=== PATIENT | female | born 1995 | race African-American/Black ===

== ENCOUNTER 2016-04-24 21:30 | Emergency (ER) | payer OTHER, MEDICAID ==
[~2016-04-24] VITALS: Ht 154.9 cm; Wt 65.0 kg
[~2016-04-24 21:30] MED LIST: CLIN1CAP5 PO; METR500I3 PO
[2016-04-24 21:32] VITALS: BP 130/75; PULSE 85; RESP 16; TEMP 98.1; O2SAT 98
[2016-04-24 23:06] LABS: AUTOMATED NEUTROPHIL # 5.1 TH/MM3 (1.8-7.7); BASOPHIL # 0.1 TH/MM3 (0-0.2); BASOPHIL % 0.6 % (0.0-2.0); EOSINOPHIL # 0.1 TH/MM3 (0-0.4); EOSINOPHIL % 0.6 % (0.0-4.0); HEMATOCRIT 40.2 % (35.0-46.0); HEMO FLAGS DIFF FINAL; LYMPH % 31.9 % (9.0-44.0); LYMPHOCYTE # 2.7 TH/MM3 (1.0-4.8); MEAN CELL VOLUME 80.5 FL (80.0-100.0); MEAN CORPUSCULAR HEMOGLOBIN 27.3 PG (27.0-34.0); MEAN CORPUSCULAR HGB CONC 33.9 % (32.0-36.0); MONO % 6.1 % (0.0-8.0); NEUT % 60.8 % (16.0-70.0); PLATELET COUNT 209 TH/MM3 (150-450); RED BLOOD COUNT 4.99 MIL/MM3 (4.00-5.30); RED CELL DISTRIBUTION WIDTH 15.4 % (11.6-17.2); WHITE BLOOD COUNT 8.4 TH/MM3 (4.0-11.0)
[2016-04-24 23:12] LABS: BLOOD, URINE NEG (NEG); COMMENT (UR) CULT NOT INDICATED; CULTURE IF INDICATED CULT NOT INDICATED; GLUCOSE,URINE NEG (NEG); KETONE, URINE NEG (NEG); MUCUS URINE FEW /lpf (OCC); NITRITE,URINE NEG (NEG); PH, URINE 5.5 (5.0-8.5); SQUAMOUS EPITHELIAL CELL URINE 5 /hpf (0-5); TRANSITIONAL EPI CELLS, URINE <1 /hpf; URINE COLOR YELLOW (YELLW/STRAW)
[2016-04-24 23:29] LABS: ANION GAP 7 MEQ/L (5-15); BICARBONATE 24.2 MEQ/L (21.0-32.0); BLOOD UREA NITROGEN 5 MG/DL (7-18); CHLORIDE 106 MEQ/L (98-107); GLOMERULAR FILTRATION RATE 128 ML/MIN (>89); SODIUM (NA) 137 MEQ/L (136-145)
[2016-04-25 04:12] VITALS: BP 109/59; PULSE 85; RESP 18; TEMP 98.4; O2SAT 100
--- NOTE | 2016-04-25 04:27 | PD ---
HPI Chief Complaint: Abdominal Pain Time Seen by Provider: 04:18 Travel History International Travel<30 days: No Contact w/Intl Traveler<30days: No Traveled to known affect area: No History of Present Illness HPI 21-year-old female arrives to the ER complaining of lower abdominal pain for 2 days associated with vaginal discharge. The vaginal discharge is somewhat bloody. Last menstruation was about 4 weeks ago. She does not believe she could be . She's had one prior which ended in . No nausea vomiting or diarrhea. No diaphoresis. Appetite normal. Onset gradual. Severity moderate. PFSH Past Medical History Diminished Hearing: No Immunizations Current: Yes Tetanus Vaccination: > 5 Years Influenza Vaccination: No ?: Unknown LMP: 03/17/16 : 2 Para: 0 Miscarriage: 0 : 2 Past Surgical History Surgical History: No Previous Surgery Social History Alcohol Use: No Tobacco Use: No Substance Use: Yes (RARE MARIJUANA) Allergies-Medications (Allergen,Severity, Reaction): Coded Allergies: No Known Allergies (Verified , 04/24/16) Reported Meds & Prescriptions Reported Meds & Active Scripts Active Obstetrix One ( W/O Vit A W/Fe Carbonyl-Fe Fumar) 38-1-225 Mg Cap 1 Cap PO DAILY Flagyl (Metronidazole) 500 Mg Tab 500 Mg PO BID 7 Days Review of Systems Except as stated in HPI: all other systems reviewed are Neg Physical Exam Narrative GENERAL: 21-year-old female pleasant no acute distress SKIN: Warm and dry. HEAD: Atraumatic. Normocephalic. EYES: Pupils equal and round. No scleral icterus. No injection or drainage. ENT: No nasal bleeding or discharge. Mucous membranes pink and moist. NECK: Trachea midline. No JVD. CARDIOVASCULAR: Regular rate and rhythm. No murmur appreciated. RESPIRATORY: No accessory muscle use. Clear to auscultation. Breath sounds equal bilaterally. GASTROINTESTINAL: Soft. Minimal tenderness about the suprapubic abdomen. MUSCULOSKELETAL: No obvious deformities. No clubbing. No cyanosis. No edema. NEUROLOGICAL: Awake and alert. No obvious cranial nerve deficits. Motor grossly within normal limits. Normal speech. PSYCHIATRIC: Appropriate mood and affect; insight and judgment normal. Data Data Last Documented VS Vital Signs Date Time Temp Pulse Resp B/P Pulse Ox O2 Delivery O2 Flow Rate FiO2 04/25/16 04:12 98.4 85 18 109/59 100 Room Air Orders Complete Blood Count With Diff (04/24/16 22:32) Basic Metabolic Panel (Bmp) (04/24/16 22:32) Urinalysis - C+S If Indicated (04/24/16 22:32) Ed Urine Pregnancytest Poc (04/24/16 22:32) Gc And Chlamydia Pcr (04/25/16 04:23) Complete Rh (04/25/16 04:23) Wet Prep Profile (04/25/16 04:23) Beta Hcg (Quant/Titer) (04/24/16 22:39) Hepatic Functional Panel (04/24/16 22:39) Lipase (04/24/16 22:39) Ed Poc Ultrasound (04/25/16 05:35) Labs Laboratory Tests Test 04/24/16 04/25/16 04/25/16 22:39 05:10 05:20 White Blood Count 8.4 TH/MM3 Red Blood Count 4.99 MIL/MM3 Hemoglobin 13.6 GM/DL Hematocrit 40.2 % Mean Corpuscular Volume 80.5 FL Mean Corpuscular Hemoglobin 27.3 PG Mean Corpuscular Hemoglobin 33.9 % Concent Red Cell Distribution Width 15.4 % Platelet Count 209 TH/MM3 Mean Platelet Volume 8.9 FL Neutrophils (%) (Auto) 60.8 % Lymphocytes (%) (Auto) 31.9 % Monocytes (%) (Auto) 6.1 % Eosinophils (%) (Auto) 0.6 % Basophils (%) (Auto) 0.6 % Neutrophils # (Auto) 5.1 TH/MM3 Lymphocytes # (Auto) 2.7 TH/MM3 Monocytes # (Auto) 0.5 TH/MM3 Eosinophils # (Auto) 0.1 TH/MM3 Basophils # (Auto) 0.1 TH/MM3 CBC Comment DIFF FINAL Differential Comment Urine Color YELLOW Urine Turbidity CLEAR Urine pH 5.5 Urine Specific [place] 1.015 Urine Protein NEG mg/dL Urine Glucose (UA) NEG mg/dL Urine Ketones NEG mg/dL Urine Occult Blood NEG Urine Nitrite NEG Urine Bilirubin NEG Urine Urobilinogen LESS THAN 2.0 MG/DL Urine Leukocyte Esterase NEG Urine RBC 1 /hpf Urine WBC 1 /hpf Urine Squamous Epithelial 5 /hpf Cells Urine Transitional Epithelial <1 /hpf Cells Urine Mucus FEW /lpf Microscopic Urinalysis Comment CULT NOT INDICATED Sodium Level 137 MEQ/L Potassium Level 4.0 MEQ/L Chloride Level 106 MEQ/L Carbon Dioxide Level 24.2 MEQ/L Anion Gap 7 MEQ/L Blood Urea Nitrogen 5 MG/DL Creatinine 0.70 MG/DL Estimat Glomerular Filtration 128 ML/MIN Rate Random Glucose 85 MG/DL Calcium Level 9.0 MG/DL Total Bilirubin 0.2 MG/DL Direct Bilirubin LESS THAN 0.1 MG/DL Indirect Bilirubin 0.1 MG/DL Aspartate Amino Transf 12 U/L (AST/SGOT) Alanine Aminotransferase 24 U/L (ALT/SGPT) Alkaline Phosphatase 70 U/L Total Protein 7.7 GM/DL Albumin 3.9 GM/DL Lipase 190 U/L Human Chorionic Gonadotropin, [address]98 MIU/ML Quant Blood Type B POSITIVE Rho(D) Type POSITIVE Clue Cells (Wet Prep) PRESENT Vaginal Trichomonas (Wet Prep) NONE SEEN Vaginal Yeast (Wet Prep) NONE SEEN MDM Medical Decision Making Medical Screen Exam Complete: Yes Emergency Medical Condition: Yes Medical Record Reviewed: Yes Differential Diagnosis IUP, UTI, ectopic , ov torsion, appendicitis, TOA, cervicitis, BV, Trichomoniasis, ov cyst, hernia, mittelschmerz, pain from menstruation Narrative Course CBC & BMP Diagram 04/24/16 22:39 UA reveals no UTI Urine positive Beta hCG is 83,232 LFTs normal Lipase normal B+ blood type Bedside ultrasound reveals an IUP with a heart rate of approximately 150/m. Wet prep positive for bacterial vaginosis. Flagyl and vitamin scripts. Follow-up with email production specialist in 2 days. Diagnosis Primary Impression: IUP (intrauterine ), incidental Additional Impression: Bacterial vaginitis Referrals: Yoselyn Marsh MD 2 days Additional Instructions: You have a choice when it comes to health care, and we are glad that you chose [facility]. Hopefully, we have met your expectations on today's visit. You are welcome to return to [facility] at any time, as we are committed to meeting the health care needs of our community. Med/Other Pt SpecificInfo: Prescription(s) given Scripts W/O Vit A W/Fe Carbonyl-Fe Fumar (Obstetrix One)38-1-225 Mg Cap1 Cap PO DAILY #90 CAP Ref 2 Prov:Andrea Montiel MD 04/25/16 Metronidazole (Flagyl)500 Mg Zol010 Mg PO BID 7 Days Ref 0 Prov:Andrea Montiel MD 04/25/16 Andrea Montiel MD Apr 25, 2016 04:27
[2016-04-25 05:14] LABS: ALT (GPT) 24 U/L (10-53); AST (GOT) 12 U/L (15-37)
[2016-04-25 05:29] LABS: ALKALINE PHOSPHATASE 70 U/L (45-117); BETA HCG QUANT 83232 MIU/ML (0-5); INDIRECT BILIRUBIN 0.1 MG/DL (0.0-0.8); TOTAL BILIRUBIN ADULT 0.2 MG/DL (0.2-1.0)
[2016-04-25] MEDS ORDERED: PREN1CAP PO (06:30)
[2016-04-25] MEDS ORDERED: METR-1 PO (06:30)
[2016-04-25] MEDS ORDERED: metroNIDAZOLE 500 MG TAB PO ONE (06:45)
[2016-04-25] MEDS ORDERED: cefTRIAXone 250 MG VIAL IM ONE (06:45)
[2016-04-25] MEDS ORDERED: AZITHROMYCIN PWD FOR SUSP 1 GM PACKET PO ONE (06:45)
[2016-04-25] MEDS ORDERED: LIDOCAINE HCL 1% 50 ML VIAL IM ONE (06:45)
[2016-04-25 07:44] LABS: CHLAMYDIA PCR NOT DETECTED (NOT DETECT); NEISSERIA PCR NOT DETECTED (NOT DETECT)
== END 2016-04-25 08:31 | disposition home or self-care (01) ==
LOC: NEPC 21:30
DX: O23.591 Infection of other part of genital tract in pregnancy, first trimester (principal); N76.0 Acute vaginitis
CPT/HCPCS: 80048; 80076; 81001; 83690; 84702; 84703; 85025; 86901; 87210; 87491; 87591; 96372; 99284; J0696

== ENCOUNTER → 2016-08-22 | Outpatient (CLI) | payer OTHER ==
[~2016-08-22] MED LIST changes: -CLIN1CAP5 PO; +METR-1 PO; -METR500I3 PO; +PREN1CAP PO
== END ==
LOC: HPND 08:27
PROVIDERS: ATTEND Obstetrics & Gynecology
DX: O35.1XX0 Maternal care for (suspected) chromosomal abnormality in fetus, not applicable or unspecified (principal); Z3A.00 Weeks of gestation of pregnancy not specified
CPT/HCPCS: 76811

== ENCOUNTER → 2016-09-18 | Outpatient (CLI) | payer OTHER | LOC: HPND 07:56 | PROVIDERS: ATTEND Obstetrics & Gynecology | DX: O26.842 Uterine size-date discrepancy, second trimester (principal) | CPT/HCPCS: 76816 ==

== ENCOUNTER 2017-02-05 08:10 | Emergency (ER) | payer MEDICAID, OTHER ==
[~2017-02-05] VITALS: Ht 154.9 cm; Wt 66.0 kg
[2017-02-05 08:28] VITALS: BP 132/84; PULSE 84; RESP 16; TEMP 98.6; O2SAT 100
--- NOTE | 2017-02-05 09:09 | PD ---
HPI . Abdominal pain Chief Complaint: Abdominal Pain Time Seen by Provider: 08:57 Travel History International Travel<30 days: No Contact w/Intl Traveler<30days: No Traveled to known affect area: No History of Present Illness HPI This patient presents with the chief complaint of abdominal pain. Onset was 3 days ago. She describes right lower quadrant and right flank pain. It is sharp. No modifying factors. Her pain is associated with hematuria. She denies fever or vomiting. She denies dysuria but states that it feels funny after she urinates. PFSH Past Medical History Medical History: Denies Significant Hx Diminished Hearing: No Immunizations Current: Yes ?: Not LMP: 01/08/17 : 2 Para: 0 Miscarriage: 0 : 2 Past Surgical History Section: Yes Gynecologic Surgery: Yes (c section ) Social History Alcohol Use: No Tobacco Use: No Substance Use: Yes (RARE MARIJUANA) Allergies-Medications (Allergen,Severity, Reaction): Coded Allergies: No Known Allergies (Verified Adverse Reaction, Unknown, 02/05/17) Reported Meds & Prescriptions Reported Meds & Active Scripts Active Macrobid (Nitrofurantoin Monoh/Nitrofur Macro) 100 Mg Cap 100 Mg PO BID 5 Days Review of Systems Except as stated in HPI: all other systems reviewed are Neg General / Constitutional: No: Fever, Chills Gastrointestinal: Positive: Abdominal Pain, No: Nausea, Vomiting Genitourinary: Positive: Hematuria, Flank Pain, No: Urgency, Frequency, Dysuria , Pelvic Pain, Dyspareunia, Discharge, Vaginal Bleeding Physical Exam Narrative GENERAL: Awake and alert and in no acute distress. SKIN: warm/dry. HEAD: Normocephalic. Atraumatic. EYES: Pupils equal and round. No scleral icterus. No injection or drainage. ENT: No nasal bleeding or discharge. Mucous membranes pink and moist. NECK: Trachea midline. Full range of motion without pain.. CARDIOVASCULAR: Regular rate and rhythm. RESPIRATORY: No accessory muscle use. Clear to auscultation. Breath sounds equal bilaterally. GASTROINTESTINAL: Abdomen soft. Nontender. Bowel sounds present. Nondistended. No CVA tenderness. MUSCULOSKELETAL: No obvious deformities. NEUROLOGICAL: Awake and alert. No obvious cranial nerve deficits. Motor grossly within normal limits. Normal speech. PSYCHIATRIC: Appropriate mood and affect; insight and judgment normal. Data Data Last Documented VS Vital Signs Date Time Temp Pulse Resp B/P (MAP) Pulse Ox O2 Delivery O2 Flow Rate FiO2 02/05/17 08:28 98.6 84 16 132/84 (100) 100 Orders Orders Ed Urine Pregnancytest Poc (02/05/17 08:57) Urinalysis - C+S If Indicated (02/05/17 08:57) Ct Abd/Pel W/O Iv Contrast (02/05/17 08:57) Urine Culture (02/05/17 09:00) Labs Laboratory Tests Test 02/05/17 09:00 Urine Color YELLOW Urine Turbidity CLOUDY Urine pH 6.0 Urine Specific [place] 1.016 Urine Protein 30 mg/dL Urine Glucose (UA) NEG mg/dL Urine Ketones NEG mg/dL Urine Occult Blood MOD Urine Nitrite NEG Urine Bilirubin NEG Urine Urobilinogen LESS THAN 2.0 MG/DL Urine Leukocyte Esterase LARGE Urine RBC 40 /hpf Urine WBC /hpf Urine WBC Clumps RARE Urine Squamous Epithelial Cells 5 /hpf Urine Bacteria FEW /hpf Microscopic Urinalysis Comment CULTURE INDICATED MDM Medical Decision Making Medical Screen Exam Complete: Yes Emergency Medical Condition: Yes Differential Diagnosis Differential diagnosis of flank pain includes but is not limited to kidney stone , pyelonephritis, musculoskeletal pain, PE Narrative Course This patient presents complaining with right flank pain associated with hematuria. She looks very comfortable. Her exam is benign. UA>>mod blood, large LE, 40 RBCs, innumerable WBCs, WBC clumps, few bact Last Impressions Abdomen/Pelvis CT 02/05/17 0857 Signed Impressions: Service Date/Time: Sunday, February 05, 2017 09:43 - CONCLUSION: Miniscule nonobstructing left renal calculus. No evidence of hydronephrosis. Sylvain Wyman MD Will treat for UTI. Diagnosis Primary Impression: Right flank pain Additional Impression: Urinary tract infection Qualified Codes: N30.01 - Acute cystitis with hematuria Patient Instructions: General Instructions, Urinary Tract Infection in Women ( [place]) Med/Other Pt SpecificInfo: Prescription(s) given Scripts Nitrofurantoin Monohydrate Macrocrystals (Macrobid) 100 Mg Cap 100 MG PO BID for Infection for 5 Days, #10 CAP 0 Refills Prov: Gloria Sandhu MD 02/05/17 Disposition: 01 DISCHARGE HOME Condition: Stable Gloria Sandhu MD Feb 05, 2017 09:09
[2017-02-05 09:20] LABS: BACTERIA, URINE FEW /hpf; BLOOD, URINE MOD (NEG); GLUCOSE,URINE NEG (NEG); KETONE, URINE NEG (NEG); NITRITE,URINE NEG (NEG); SQUAMOUS EPITHELIAL CELL URINE 5 /hpf (0-5); URINE COLOR YELLOW (YELLW/STRAW)
[2017-02-05 09:22] LABS: COMMENT (UR) CULTURE INDICATED; CULTURE IF INDICATED CULTURE INDICATED
[2017-02-05] MEDS ORDERED: MACR100C2 PO (09:52)
--- NOTE | 2017-02-05 10:11 | RADRPT ---
EXAM DATE/TIME: 02/05/2017 09:43 [facility] COMPARISON: No previous studies available for comparison. INDICATIONS : Hematuria and lower back pain since yesterday. ORAL CONTRAST: No oral contrast ingested. RADIATION DOSE: 8.90 CTDIvol (mGy) MEDICAL HISTORY : None SURGICAL HISTORY : None. ENCOUNTER: Initial ACUITY: 1 day PAIN SCALE: 7/10 LOCATION: lower back TECHNIQUE: Volumetric scanning of the abdomen and pelvis was performed. Using automated exposure control and ad justment of the mA and/or kV according to patient size, radiation dose was kept as low as reasonably achievable to obtain optimal diagnostic quality images. DICOM format image data is available electro nically for review and comparison. FINDINGS: LOWER LUNGS: Not visualized LIVER: Visualized portions are grossly unremarkable. SPLEEN: Visualized portions grossly unremarkable. PANCREAS: Within normal limits. KIDNEYS: Miniscule nonobstructing calculus in the posterior midpole collecting system of the left kidney. No e vidence of mass or hydronephrosis ADRENAL GLANDS: Within normal limits. VASCULAR: There is no aortic aneurysm. BOWEL/MESENTERY: The stomach, small bowel, and colon demonstrate no acute abnormality. There is no free intraperitone al air or fluid. ABDOMINAL WALL: Within normal limits. RETROPERITONEUM: There is no lymphadenopathy. BLADDER: No wall thickening or mass. REPRODUCTIVE: Within normal limits. INGUINAL: There is no lymphadenopathy or hernia. MUSCULOSKELETAL: Within normal limits for patient age. CONCLUSION: Miniscule nonobstructing left renal calculus. No evidence of hydronephrosis. Sylvain Wyman MD on February 05, 2017 at 10:03 Board Certified Radiologist. This report was verified electronically.
== END 2017-02-05 10:50 | disposition home or self-care (01) ==
LOC: NEPE 08:10
DX: N30.01 Acute cystitis with hematuria (principal); B96.20 Unspecified Escherichia coli [E. coli] as the cause of diseases classified elsewhere
CPT/HCPCS: 74176; 81001; 84703; 87077; 87086; 87186; 99284

== ENCOUNTER 2017-07-11 08:29 | Emergency (ER) | payer SELFPAY ==
[~2017-07-11] VITALS: Ht 154.9 cm; Wt 70.0 kg
[~2017-07-11 08:29] MED LIST changes: +MACR100C2 PO; -METR-1 PO; -PREN1CAP PO
[2017-07-11 08:39] VITALS: BP 131/61; PULSE 77; RESP 17; TEMP 97.9; O2SAT 99
[2017-07-11 11:00] LABS: AUTOMATED NEUTROPHIL # 4.3 TH/MM3 (1.8-7.7); BASOPHIL % 0.4 % (0.0-2.0); EOSINOPHIL # 0.1 TH/MM3 (0-0.4); EOSINOPHIL % 0.7 % (0.0-4.0); HEMATOCRIT 35.8 % (35.0-46.0); HEMOGLOBIN 11.9 GM/DL (11.6-15.3); LYMPH % 35.3 % (9.0-44.0); LYMPHOCYTE # 2.7 TH/MM3 (1.0-4.8); MEAN CORPUSCULAR HEMOGLOBIN 24.4 PG (27.0-34.0); MEAN CORPUSCULAR HGB CONC 33.3 % (32.0-36.0); MEAN PLATELET VOLUME 8.4 FL (7.0-11.0); MONO % 6.3 % (0.0-8.0); MONOCYTE # 0.5 TH/MM3 (0-0.9); NEUT % 57.3 % (16.0-70.0); PLATELET COUNT 270 TH/MM3 (150-450); RED CELL DISTRIBUTION WIDTH 17.8 % (11.6-17.2); WHITE BLOOD COUNT 7.6 TH/MM3 (4.0-11.0)
[2017-07-11 11:04] LABS: BACTERIA, URINE RARE /hpf; BILIRUBIN, URINE NEG (NEG); BLOOD, URINE NEG (NEG); GLUCOSE,URINE NEG (NEG); KETONE, URINE NEG (NEG); NITRITE,URINE NEG (NEG); PH, URINE 7.5 (5.0-8.5); SQUAMOUS EPITHELIAL CELL URINE 4 /hpf (0-5); URINE COLOR YELLOW (YELLW/STRAW); URINE LEUKOCYTE ESTERASE NEG (NEG)
--- NOTE | 2017-07-11 11:25 | PD ---
HPI Chief Complaint: Automation Lead Problem/Complaint Time Seen by Provider: 10:57 Travel History International Travel<30 days: No Contact w/Intl Traveler<30days: No Traveled to known affect area: No History of Present Illness HPI 22-year-old female presents to the emergency department for evaluation of vaginal bleeding for 3 weeks. Patient states that she is going through approximately 1-3 pads a day. She states the vaginal bleeding is not heavy, but she does not know why she is bleeding. Patient has a 7-month-old daughter. Patient's urine test is positive in triage. She is a G3, P1 with one previous . Patient denies any fevers or chills. No abdominal pain. She denies any abnormal vaginal discharge or risk of STDs. Patient denies any syncope, weakness. She denies any other symptoms or complaints at this time. Mild-moderate severity. PFSH Past Medical History Medical History: Denies Significant Hx Diminished Hearing: No Immunizations Current: Yes ?: LMP: 05/2017 : 2 Para: 0 Miscarriage: 0 : 2 Past Surgical History Section: Yes Gynecologic Surgery: Yes (c section ) Social History Alcohol Use: No Tobacco Use: No Substance Use: Yes (RARE MARIJUANA) Allergies-Medications (Allergen,Severity, Reaction): Coded Allergies: No Known Allergies (Verified Adverse Reaction, Unknown, 02/05/17) Reported Meds & Prescriptions Reported Meds & Active Scripts Active No Active Prescriptions or Reported Medications Review of Systems Except as stated in HPI: all other systems reviewed are Neg Physical Exam Narrative GENERAL: Well-nourished, well-developed female patient, afebrile. SKIN: Focused skin assessment warm/dry. HEAD: Normocephalic. Atraumatic. EYES: No scleral icterus. No injection or drainage. NECK: Supple, trachea midline. No JVD or lymphadenopathy. CARDIOVASCULAR: Regular rate and rhythm without murmurs, gallops, or rubs. RESPIRATORY: Breath sounds equal bilaterally. No accessory muscle use. Lungs sounds are clear to auscultation GASTROINTESTINAL: Abdomen soft, non-tender, nondistended. No tenderness to palpation MUSCULOSKELETAL: No cyanosis, or edema. BACK: Nontender without obvious deformity. No CVA tenderness. GENITOURINARY: Normal external genitalia without lesions or erythema. Vaginal vault without blood or drainage. Cervical os was closed without drainage. No cervical motion tenderness. Uterus nontender and nonenlarged. Bilateral adnexa nontender without masses. This exam was done with RN at bedside Data Data Last Documented VS Vital Signs Date Time Temp Pulse Resp B/P (MAP) Pulse Ox O2 Delivery O2 Flow Rate FiO2 07/11/17 08:39 97.9 77 17 131/61 (84) 99 Orders Orders Complete Blood Count With Diff (07/11/17 10:14) Iv Access Insert/Monitor (07/11/17 10:14) Oxygen Administration (07/11/17 10:14) Oximetry (07/11/17 10:14) Ed Urine Pregnancytest Poc (07/11/17 10:14) Basic Metabolic Panel (Bmp) (07/11/17 10:14) Urinalysis - C+S If Indicated (07/11/17 10:16) Beta Hcg (Quant/Titer) (07/11/17 11:13) Gc And Chlamydia Pcr (07/11/17 11:13) Wet Prep Profile (07/11/17 11:13) Us Pelvis (Ques Preg/Ectopic) (07/11/17 ) Labs Laboratory Tests Test 07/11/17 10:32 07/11/17 10:33 07/11/17 11:15 Urine Color YELLOW Urine Turbidity CLEAR Urine pH 7.5 Urine Specific [place] 1.012 Urine Protein NEG mg/dL Urine Glucose (UA) NEG mg/dL Urine Ketones NEG mg/dL Urine Occult Blood NEG Urine Nitrite NEG Urine Bilirubin NEG Urine Urobilinogen LESS THAN 2.0 MG/DL Urine Leukocyte Esterase NEG Urine RBC 1 /hpf Urine WBC 2 /hpf Urine Squamous Epithelial Cells 4 /hpf Urine Bacteria RARE /hpf Microscopic Urinalysis Comment CULT NOT INDICATED White Blood Count 7.6 TH/MM3 Red Blood Count 4.90 MIL/MM3 Hemoglobin 11.9 GM/DL Hematocrit 35.8 % Mean Corpuscular Volume 73.0 FL Mean Corpuscular Hemoglobin 24.4 PG Mean Corpuscular Hemoglobin Concent 33.3 % Red Cell Distribution Width 17.8 % Platelet Count 270 TH/MM3 Mean Platelet Volume 8.4 FL Neutrophils (%) (Auto) 57.3 % Lymphocytes (%) (Auto) 35.3 % Monocytes (%) (Auto) 6.3 % Eosinophils (%) (Auto) 0.7 % Basophils (%) (Auto) 0.4 % Neutrophils # (Auto) 4.3 TH/MM3 Lymphocytes # (Auto) 2.7 TH/MM3 Monocytes # (Auto) 0.5 TH/MM3 Eosinophils # (Auto) 0.1 TH/MM3 Basophils # (Auto) 0.0 TH/MM3 CBC Comment DIFF FINAL Differential Comment Blood Urea Nitrogen 6 MG/DL Creatinine 0.60 MG/DL Random Glucose 87 MG/DL Calcium Level 8.9 MG/DL Sodium Level 138 MEQ/L Potassium Level 3.6 MEQ/L Chloride Level 107 MEQ/L Carbon Dioxide Level 26.5 MEQ/L Anion Gap 5 MEQ/L Estimat Glomerular Filtration Rate 151 ML/MIN Human Chorionic Gonadotropin, Quant 197967 MIU/ML Clue Cells (Wet Prep) NONE SEEN Vaginal Trichomonas (Wet Prep) NONE SEEN Vaginal Yeast (Wet Prep) NONE SEEN MDM Medical Decision Making Medical Screen Exam Complete: Yes Emergency Medical Condition: Yes Medical Record Reviewed: Yes Interpretation(s) US - CONCLUSION: Single live IUP at 9 weeks 6 days with a suspected 1.4 cm subchorionic hemorrhage seen superiorly at the right uterine fundus region. Differential Diagnosis Threatened versus spontaneous versus intrauterine versus UTI versus anemia Narrative Course 22-year-old female presents to the emergency department for evaluation of vaginal bleeding for 3 weeks. Patient denies any other symptoms or complaints. Urine test is positive in triage. CBC, BMP, beta hCG, UA, wet prep profile, swab for GC chlamydia, ultrasound of the pelvis are ordered and pending. CBC shows no acute abnormality. Hemoglobin is normal at 11.9 with a hematocrit of 35.8. BMP is unremarkable. Beta hCG is [id number]. UA shows rare bacteria. Patient will be discharged with Macrobid for bacteria in urine. She is instructed on pelvic rest and is to follow up with OB. She verbalizes agreement and understanding. Diagnosis Primary Impression: Threatened Additional Impression: Intrauterine Referrals: Acid Remover call for appointment Patient Instructions: General Instructions, Threatened Miscarriage (ED) Additional Instructions: Pelvic rest - no tampons or sex Take Macrobid for bacteria in your urine. Follow up with OB. Return to the emergency department for any acute, worsening of symptoms. Med/Other Pt SpecificInfo: Prescription(s) given Scripts Nitrofurantoin Monohydrate Macrocrystals (Macrobid) 100 Mg Capsule 100 MG PO BID for Infection for 7 Days, #14 CAP 0 Refills Prov: Rachel Seo 07/11/17 Disposition: 01 DISCHARGE HOME Condition: Stable Rachel Seo Jul 11, 2017 11:25
[2017-07-11 11:35] LABS: BICARBONATE 26.5 MEQ/L (21.0-32.0); CALCIUM 8.9 MG/DL (8.5-10.1); CREATININE 0.6 MG/DL (0.50-1.00)
--- NOTE | 2017-07-11 12:44 | RADRPT ---
EXAM DATE/TIME: 07/11/2017 11:35 [facility] COMPARISON: No previous studies available for comparison. INDICATIONS : Bleeding. LAB(S): Beta-hC,027 MEDICAL HISTORY : . SURGICAL HISTORY : section. ENCOUNTER: Initial ACUITY: 3 weeks PAIN SCORE: 3/10 LOCATION: Bilateral pelvis MEASUREMENTS: UTERUS: 9.6 x 7.5 x 6.5 cm ENDOMETRIAL STRIPE: 15 mm RIGHT OVARY: 3.4 x 3.3 x 1.9 cm LEFT OVARY: 2.5 x 1.4 x 1.7 cm FREE FLUID: No CROWN RUMP LENGTH: 2.96 cm = 9 WKS 6 DAYS FHR: 168 BPM FINDINGS: UTERUS: There is a single live IUP seen. This measures 3.0 cm in crown-rump length corresponds with gestation al age of 9 weeks 6 days. cardiac activity is seen. There is a 1.4 x 1.1 x 0.7 cm complex mass seen in the right uterine fundus region potentially representing a subchorionic hemorrhage. RIGHT OVARY: Ovary contains no mass or significant cystic lesion. LEFT OVARY: Ovary contains no mass or significant cystic lesion. MISCELLANEOUS: No free fluid. CONCLUSION: Single live IUP at 9 weeks 6 days with a suspected 1.4 cm subchorionic hemorrhage seen superiorly at the right uterine fundus region. Sylvain Hernandez MD on July 11, 2017 at 12:40 Board Certified Radiologist. This report was verified electronically.
[2017-07-11] MEDS ORDERED: MACR100C2 PO (12:53)
== END 2017-07-11 13:13 | disposition home or self-care (01) ==
LOC: NEPC 08:29
DX: O20.0 Threatened abortion (principal); Z3A.00 Weeks of gestation of pregnancy not specified
CPT/HCPCS: 76700; 80048; 81001; 84702; 84703; 85025; 87210; 87491; 87591